=== PATIENT | female | born 2000 ===

== ENCOUNTER 2023-03-22 05:04 | Emergency (ER) | payer OTHER ==
--- OUTSIDE RECORDS SUMMARY | 2023-03-22 05:09 | XMS REPORT | Continuity of Care Document ---
:2000 Author Organization [facility] t Address [address] [place] [address] [address] [place] [address] Care Team Providers Name Role Phone ANY MCKEON Primary Care Physician Unavailable RADHA WELDON Attending Clinician Unavailable ROBERT DELGADO Attending Clinician Unavailable GARCIA ALEJANDRO Attending Clinician Unavailable Garcia Alejandro MD Attending Clinician [phone] Randy Villarreal MD Attending Clinician Fernando Pfeiffer DO Attending Clinician Ralph Mathur MD Attending Clinician Doctor Unassigned, [place] Attending Clinician Unavailable Robert Price Attending Clinician [phone] Radha Arevalo Attending Clinician MAYA GUTIERREZ Attending Clinician Unavailable Risk, Flh-Ziguq-Na/High Attending Clinician Unavailable Maya Barillas Attending Clinician BURAK CHANDLER Attending Clinician Unavailable Burak Chandler MD Attending Clinician Ultrasound, Ang-Mfericka Attending Clinician Unavailable Tereso Walker DO Attending Clinician ANY MCKEON Attending Clinician Unavailable Provider, Ang-Rmchp Temp Attending Clinician Unavailable Simin Vyas Attending Clinician [phone] SIMIN BLAND Attending Clinician Unavailable Emily Wood MD Attending Clinician EMILY WOOD Attending Clinician Unavailable Marlen Lynn MD Attending Clinician Any Kaba Attending Clinician Bar Huertas DO Attending Clinician BURAK CHANDLER Admitting Clinician Unavailable GARCIA ALEJANDRO Admitting Clinician Unavailable Ryne Mcginnis MD, [place] Admitting Clinician Burak Chandler MD Admitting Clinician Payers Payer Name Policy Type Policy Number Effective Date Expiration Date [facility] [id number] 2021 [facility] MEDICAID 00:00:00 [place]ICAID OF [place] [id number] 2021 00:00:00 MEDICAID PENDING PENDING 2021 00:00:00 [id number]-[id number] 2019 00:00:00 Problems Condition Condition Condition Status Onset Resolution Last Treating Co mments Source Name Details Category Date Date Treatment Clinician Date Disease Active Univers (spontaneo (spontaneo 3-26 [place] y [place] vaginal [place] [facility] Gestationa Gestationa Disease Active U nivers l l 3-26 [place] of hypertens[place]ens[place] [facility] Single Single Disease Active Univers live live 3-26 ity of 00:00: [place] 00 [facility] Decreased Decreased Disease Active Uni vers 3-25 ity of movement movement 00:00: [place] affecting affecting 00 [facility] management management Br anch of of in third in third trimester, trimester, fetus 1 fetus 1 Nausea and Nausea and Disease Active U nivers vomiting vomiting 3-25 ity of during during 00:00: [place] 00 [facility] Branch Supervisio Supervisio Disease Active U nivers n of n of 3-16 ity of high-risk high-[place] 00:[place] [facility] Multiparit Multiparit Disease Active U nivers y y 3-16 ity of 00:00: [place] [facility] Gastroesop Gastroesop Disease Active U nivers hageal hageal 3-10 ity of reflux [place] reflux [place] [facility] Morbid Morbid Disease Active Univers obesity obesity 1-28 ity of with body with body 00:[place] mass index mass index 00 Me dical of of Branch 40.0-49.9 40.0-49.9 Nexplanon Nexplanon Disease Active Uni vers insertion insertion 4-17 ity of 00:00: [place] [facility] Obesity Obesity Disease Active Univers (BMI (BMI 2-08 ity of 30-39.9) 30-39.9) 00:00: [facility] Obesity in Obesity in Disease Active U nivers 2-08 ity of 00:00: [place] [facility] Maternal Maternal Disease Active Overview: Un ann varicella, varicella, 8-08 Formattin ity of non-immune non-immune 00:00: g of this [place] 00 note Medical might be Branch different from the original. Address pp Allergies, Adverse Reactions, Alerts Allergy Allergy Status Severity Reaction(s) Onset Inactive Treating Comm ents Source Name Type Date Date Clinician NO KNOWN Drug Active Univers ALLERGIE Class ity of S [facility] Social History Social Habit Start Date Stop Date Quantity Comments Source ASSERTION 2021-04-26 University of 00:00:00 [facility] Exposure to Not sure [facility] SARS-CoV-2 [facility] (event) Branch Alcohol intake 2022-01-04 2022-01-04 Current University of 00:00:00 00:00:00 non-drinker of [facility] alcohol [place] (finding) Tobacco use and 2018-05-19 2018-05-19 Never used Universit y of exposure 00:00:00 00:00:00 [facility] Sex Assigned At [birth year] Universit y of 00:00:00 00:00:00 [facility] Smoking Status Start Date Stop Date Source Unknown if ever smoked Universit y of [place] [facility] Never smoker [facility] Medications Ordered Filled Start Stop Current Ordering Indication Dosage Frequency Signature Comments Components Source Medication Medication Date Date Medication? Clinician (SIG) Name Name Yes [id number] 1{tbl} Take 1 Univers vitamin 3-27 tablet by ity of w/FA tablet 00:00: mouth [place] 00 daily. Medical Branch docusate Yes [id number] 240mg Take 1 U nivers calcium 240 3-27 capsule by it y of mg capsule 00:00: mouth [place] 00 daily as Medical needed for Branch Constipati on. ferrous Yes [id number] 325mg Take 1 Un nan sulfate 325 3-27 tablet by ity of mg (65 mg 00:00: mouth 2 [place] iron) 00 (two) Medical tablet times Branch daily. ibuprofen Yes [id number] 600mg Take 1 Univers 600 mg 3-27 tablet by ity of tablet 00:00: mouth [place] 00 every 6 Medical (six) Branch hours as needed (Pain). Take with food or milk. Yes [id number] 1{tbl} Take 1 Univers vitamin 3-27 tablet by ity of w/FA tablet 00:00: mouth [place] 00 daily. Medical Branch docusate Yes [id number] 240mg Take 1 U nivers calcium 240 3-27 capsule by it y of mg capsule 00:00: mouth once [place] 00 daily as Medical needed for Branch Constipati on. ferrous Yes [id number] 325mg Take 1 Un ann sulfate 325 3-27 tablet by ity of mg (65 mg 00:00: mouth 2 [place] iron) 00 (two) Medical tablet times Branch daily. ibuprofen Yes [id number] 600mg Take 1 Univers 600 mg 3-27 tablet by ity of tablet 00:00: mouth [place] 00 every 6 Medical (six) Branch hours as needed (Pain). Take with food or milk. Yes [id number] 1{tbl} Take 1 Univers vitamin 3-27 tablet by ity of w/FA tablet 00:00: mouth [place] 00 daily. Medical Branch docusate Yes [id number] 240mg Take 1 U nivers calcium 240 3-27 capsule by it y of mg capsule 00:00: mouth once [place] 00 daily as Medical needed for Branch Constipati on. ferrous Yes [id number] 325mg Take 1 Un ann sulfate 325 3-27 tablet by ity of mg (65 mg 00:00: mouth 2 [place] iron) 00 (two) Medical tablet times Branch daily. ibuprofen Yes [id number] 600mg Take 1 Univers 600 mg 3-27 tablet by ity of tablet 00:00: mouth [place] 00 every 6 Medical (six) Branch hours as needed (Pain). Take with food or milk. simethicone Yes 125mg 125 mg, Un ann (MYLICON) 3-26 Oral, ity of chewable 14:00: PC+HS, [place] tablet 125 00 First dose Med ical mg on Sat Branch 01/05/22 at 0900, Until Discontinu ed, Routine rho(D) Yes 300ug 300 mcg, Univer s immune 01-05 Intramuscu ity of globulin 08:57: lar, ONCE, Nitesh as (RHOGAM) 15 For 1 Medical syringe 300 dose, Branch mcg Conditiona l, Routine HYDROcodone Yes 1{tbl} 1 tablet, Univers -acetaminop 01-05 Oral, ity of hen (NORCO 08:57: Q6HPRN, [place] 5) 5-325 mg 14 Starting Medi edison tablet 1 on Sat Branch tablet 01/05/22 at 0357, Until Discontinu ed, Routine, Pain (scale 7-10) ibuprofen Yes 600mg 600 mg, Univ ers (IBU) 3- Oral, ity of tablet 600 08:57: Q6HPRN, [place] mg 14 Starting Medical on Sat Branch 01/05/22 at 0357, Until Discontinu ed, Routine, Pain (scale 4-6) ondansetron Yes 4mg 4 mg, Slow Univers (ZOFRAN 01-05 IV Push, ity of (PF)) 08:57: Q8HPRN, [place] injection 4 14 Starting Medi edison mg on Sat Branch 01/05/22 at 0357, Until Discontinu ed, Routine, Nausea and Vomiting (N/V) magnesium Yes 30mL 30 mL, Univer s hydroxide 01-05 Oral, ity of (MILK OF 08:57: QDAILYPRN, [place] as MAGNESIA) 14 Starting Medica l 400 mg/5 mL on Sat Branch suspension 01/05/22 at 30 mL 0357, Until Discontinu ed, Routine, Constipati on acetaminoph Yes 650mg 650 mg, Un ann en 01-05 Oral, ity of (TYLENOL) 08:57: Q6HPRN, [place] tablet 650 13 Starting Medic al mg on Sat Branch 01/05/22 at 0357, Until Discontinu ed, Routine, Pain (scale 1-3) diphenhydrA Yes 25mg 25 mg, Univ ers MINE 01-05 Oral, ity of (BENADRYL) 08:57: Q6HPRN, [place] tablet 25 13 Starting Medica l mg on Sat Branch 01/05/22 at 0357, Until Discontinu ed, Routine, Sleep, Itching docusate Yes 240mg 240 mg, Unive rs calcium 01-05 Oral, ity of (SURFAK) 08:57: QDAILYPRN, [place] as capsule 240 13 Starting Medi eidson mg on Sat Branch 01/05/22 at 0357, Until Discontinu ed, Routine, Constipati on benzocaine- Yes Topical, Un ann menthol 01-05 PRN, ity of (DERMOPLAST 08:57: [place] ) 20-0.5 % 13 on [facility] Medical topical 01/05/22 at Branch spray 0357, Until Discontinu ed, Routine, Perineum discomfort lactated 2021- No 500mL at 999 Unive rs ringers IV 01-05 mL/hr, 500 it y of infusion 05:15: 04:36 mL, IV [place] 500 mL 00 :00 Infusion, Medical ONCE, 1 Branch dose, On 01/05/22 at 0015, Routine fentaNYL-ro 2021- No Epidural, Univers pivacaine 2 01-05 CONTINUOUS i ty of mcg/mL-0.1 04:49: 10:28 PRN, [place] % (PF) in 00 :41 Starting Medica l NS 200 mL on Fri Branch epidural 01/04/22 at infusion 2349, RTU Until 01/05/22 at 0528, Routine, Intra-op lidocaine-e 2021- No Epidural, Univers pinephrine 01-05 ONCE INTRA it y of (XYLOCAINE 04:46: 10:28 PROCEDURE, [place] W/EPINEPHRI 00 :41 Starting [facility] NE) 1.5 on Fri Branch %-1:200,000 01/04/22 at injection 2346, Until 01/05/22 at 0528, Routine, Intra-op sodium 2021- No 30mL 30 mL, Univers citrate-cit 01-05 Oral, ity of vicky acid 04:14: 04:35 PRE-PROCED [place] (BICITRA) 09 :00 URE ONCE, Medic al 500-334 1 dose, Branch mg/5 mL Starting solution 30 on Fri mL 01/04/22 at 2314, Until 01/04/22 at 2335, Routine, Surgery/Pr ocedure nalbuphine 2021- No 10mg 10 mg, Univ ers (NUBAIN) 01-05 Intravenou ity of injection 01:30: 00:39 s, ONCE, 1 [place] 10 mg 00 :00 dose, On Medical Fri Branch 01/04/22 at 2030, Routine proMETHazin 2021- No 12.5mg 12.5 mg, Univers e 01-05 IV ity of (PHENERGAN) 01:30: 01:14 Piggyback, [place] 12.5 mg in 00 :00 at 200 Medical NS 50 mL IV mL/hr Branch piggyback Administer (CNR) over 15 Minutes, ONCE, 1 dose, On 01/04/22 at 2030, Routine magnesium 2021- No 1g 1 g, IV Univ ers sulfate in 01-04 Piggyback, it y of D5W 1 22:00: 22:55 ONCE, 1 [place] gram/100 mL 00 :00 dose, On [facility] RTU IV Fri Branch Piggyback 1 01/04/22 at g 1700, Administer over 60 Minutes, 100 mL proMETHazin 2021- No 25mg 25 mg, IV Univers e 01-04 Piggyback, ity of (PHENERGAN) 21:15: 21:37 at 200 [place] as 25 mg in NS 00 :00 mL/hr Medical 50 mL IV Administer Branc h piggyback over 15 (CNR) Minutes, ONCE, 1 dose, On Fri01/04/22 at 1615, Routine butorphanol 2021- No 1mg 1 mg, IV U nivers (STADOL) 01-04 03-25 Push, ity of injection 1 21:15: 20:33 ONCE, 1 [place] mg 00 :00 dose, On Medical Fri Branch 01/04/22 at 1615, Routine oxytocin 2021- No 1mU/min at 1-40 Un ann (PITOCIN) 01-04 03-26 mL/hr, IV ity of 30 units in 17:22: 08:57 Infusion, [place] NS 500 mL 18 :15 TITRATE, Medica l IV infusion Starting Bran ch on Fri01/04/22 at 1222, Until 01/05/22 at 0357, KOKI D5W-LR IV 2021- No 1000mL at 125 Uni vers infusion 01-04 03-26 mL/hr, IV ity o f 1,000 mL 16:30: 08:57 Infusion, [place] as 00 :15 CONTINUOUS Medical , Starting Branch on Fri01/04/22 at 1130, Until 01/05/22 at 0357, Routine No known No Univers medications 3-16 ity of 13:49: [place] 40 Medical Branch Yes [id number] 1{packe Take 1 Univers vit 8-16 t} Packet by ity of 33-iron-fol 00:00: mouth [place] ic-dha 00 daily. Medical (SELECT-OB Branch + DHA) 29 mg iron-1 mg -250 mg combo pack Yes [id number] 1{packe Take 1 Univers vit 8-16 t} Packet by ity of 33-iron-fol 00:00: mouth [place] ic-dha 00 daily. Medical (SELECT-OB Branch + DHA) 29 mg iron-1 mg -250 mg combo pack Yes [id number] 1{packe Take 1 Univers vit 8-16 t} Packet by ity of 33-iron-fol 00:00: mouth [place] ic-dha 00 daily. Medical (SELECT-OB Branch + DHA) 29 mg iron-1 mg -250 mg combo pack 2020- Yes [id number] 1{packe Take 1 Univers vit 8-16 t} Packet by ity of 33-iron-fol 00:00: mouth [place] ic-dha 00 daily. Medical (SELECT-OB Branch + DHA) 29 mg iron-1 mg -250 mg combo pack 2021- No [id number] 1{packe Take 1 Univers vit 8-16 03-27 t} Packet by ity of 33-iron-fol 00:00: 00:00 [place] ic-dha 00 :00 daily. Medical (SELECT-OB Branch + DHA) 29 mg iron-1 mg -250 mg combo pack 2021- No [id number] 1{packe Take 1 Univers vit 8-16 03-27 t} Packet by ity of 33-iron-fol 00:00: 00:00 [place] ic-dha 00 :00 daily. Medical (SELECT-OB Branch + DHA) 29 mg iron-1 mg -250 mg combo pack Immunizations Ordered Filled Immunization Date Status Comments [facility] e Immunization Name Name Varicella 2022-01-05 Completed University of (varivax)(chicken 00:00:00 [place] M edical pox) Branch TDAP 2021-10-31 Completed University of 00:00:00 [facility] TDAP 2021-10-31 Completed University of 00:00:00 [facility] TDAP 2021-10-31 Completed University of 00:00:00 [facility] TDAP 2021-10-31 Completed University of 00:00:00 [facility] TDAP 2021-10-31 Completed University of 00:00:00 [facility] TDAP 2021-10-31 Completed University of 00:00:00 [facility] TDAP 2021-10-31 Completed University of 00:00:00 [facility] Varicella 2019-01-27 Completed University of (varivax)(chicken 00:00:00 [place] M edical pox) Branch HPV9 2019-01-27 Completed University of 00:00:00 [facility] Varicella 2019-01-27 Completed University of (varivax)(chicken 00:00:00 [place] M edical pox) Branch HPV9 2019-01-27 Completed University of 00:00:00 [facility] Varicella 2019-01-27 Completed University of (varivax)(chicken 00:00:00 [place] M edical pox) Branch HPV9 2019-01-27 Completed University of 00:00:00 [facility] Varicella 2019-01-27 Completed University of (varivax)(chicken 00:00:00 [place] M edical pox) Branch HPV9 2019-01-27 Completed University of 00:00:00 [facility] Varicella 2019-01-27 Completed University of (varivax)(chicken 00:00:00 [place] M edical pox) Branch HPV9 2019-01-27 Completed University of 00:00:00 [facility] Varicella 2019-01-27 Completed University of (varivax)(chicken 00:00:00 [place] M edical pox) Branch HPV9 2019-01-27 Completed University of 00:00:00 [facility] Varicella 2019-01-27 Completed University of (varivax)(chicken 00:00:00 [place] M edical pox) Branch HPV9 2019-01-27 Completed University of 00:00:00 [facility] Varicella 2018-11-22 Completed University of (varivax)(chicken 00:00:00 [place] M edical pox) Branch Varicella 2018-11-22 Completed University of (varivax)(chicken 00:00:00 [place] M edical pox) Branch Varicella 2018-11-22 Completed University of (varivax)(chicken 00:00:00 [place] M edical pox) Branch Varicella 2018-11-22 Completed University of (varivax)(chicken 00:00:00 [place] M edical pox) Branch Varicella 2018-11-22 Completed University of (varivax)(chicken 00:00:00 [place] M edical pox) Branch Varicella 2018-11-22 Completed University of (varivax)(chicken 00:00:00 [place] M edical pox) Branch Varicella 2018-11-22 Completed University of (varivax)(chicken 00:00:00 [place] M edical pox) Branch TDAP 2018-10-14 Completed University of 00:00:00 [facility] TDAP 2018-10-14 Completed University of 00:00:00 [facility] TDAP 2018-10-14 Completed University of 00:00:00 [facility] TDAP 2018-10-14 Completed University of 00:00:00 [facility] TDAP 2018-10-14 Completed University of 00:00:00 [place] [facility] TDAP 2018-10-14 Completed University of 00:00:00 [facility] Branch TDAP 2018-10-14 Completed University of 00:00:00 [facility] Influenza Virus 2018-07-22 Completed Universit y of Vaccine Quad IM 3+ 00:00:00 [facility] Influenza Virus 2018-07-22 Completed Universit y of Vaccine Quad IM 3+ 00:00:00 [facility] Branch Influenza Virus 2018-07-22 Completed Universit y of Vaccine Quad IM 3+ 00:00:00 [facility] Influenza Virus 2018-07-22 Completed Universit y of Vaccine Quad IM 3+ 00:00:00 [facility] Influenza Virus 2018-07-22 Completed Universit y of Vaccine Quad IM 3+ 00:00:00 [facility] Influenza Virus 2018-07-22 Completed Universit y of Vaccine Quad IM 3+ 00:00:00 [facility] Influenza Virus 2018-07-22 Completed Universit y of Vaccine Quad IM 3+ 00:00:00 [facility] Vital Signs Vital Name Observation Time Observation Value Comments Source Systolic blood 2022-01-06 12:48:00 127 mm[Hg] Univer sity of pressure [facility] Diastolic blood 2022-01-06 12:48:00 85 mm[Hg] Unive rsity of pressure [facility] Heart rate 2022-01-06 12:48:00 73 /min Universi ty [facility] Body temperature 2022-01-06 12:48:00 36.5 Kyung [facility] 2022-01-06 12:48:00 18 /min [facility] Oxygen saturation in 2022-01-06 12:48:00 99 /min [facility] Arterial blood by [facility] Pulse oximetry Branch Systolic blood 2022-01-03 21:07:00 131 mm[Hg] Univer sity of pressure [facility] Diastolic blood 2022-01-03 21:07:00 90 mm[Hg] Unive rsity of pressure [facility] Heart rate 2022-01-03 21:07:00 87 /min Universi ty of [facility] Body temperature 2022-01-03 21:07:00 37.44 Kyung [facility] Respiratory rate 2022-01-03 21:07:00 20 /min [facility] Body height 2022-01-03 21:07:00 162.6 cm Universi [facility] Body weight 2022-01-03 21:07:00 112.492 [facility] 2022-01-03 21:07:00 42.57 kg/m2 [facility] Systolic blood 2021-12-26 18:20:00 132 mm[Hg] Univer sity of pressure [facility] Diastolic blood 2021-12-26 18:20:00 79 mm[Hg] [facility] Heart rate 2021-12-26 18:20:00 76 /min [facility] Body temperature 2021-12-26 18:20:00 36.06 Kyung [facility] Respiratory rate 2021-12-26 18:20:00 18 /min [facility] Body height 2021-12-26 18:20:00 162.6 cm [facility] Body weight 2021-12-26 18:20:00 109.362 kg [facility] BMI 2021-12-26 18:20:00 41.38 kg/m2 [facility] Procedures Procedure Date / Time Performing Clinician Source Performed CBC WITH DIFF 2022-01-06 06:02:00 Scarlett Cameron [facility] VENOUS CORD GAS 2022-01-05 06:04:00 [facility] CENTRAL NEURAXIAL BLOCK 2022-01-05 05:00:57 Jag Calvin [facility] HB ABO GROUPING 2022-01-04 19:57:00 [facility] RHO (D) IMMUNE GLOBULIN 2022-01-04 19:57:00 Scarlett Cameron [facility] HEPATITIS B SURFACE 2022-01-04 19:28:00 [facility] ANTIGEN [facility] GALV ONLY - SYPHILIS 2022-01-04 19:28:00 [facility] IGG/IGM Medical Branch CBC WITHOUT DIFF 2022-01-04 19:27:00 [facility]-04 19:26[facility]00 [facility] PROTEIN CREAT RATIO URINE 2022-01-04 19:26:00 [facility] LACTATE DEHYDROGENASE 2022-01-04 19:25:00 [facility] 2022-01-04 19:25:00 [facility] AMYLASE 2022-01-04 19:25:00 [facility] LIPASE 2022-01-04 [facility] 2022-01-04 19:25:00 [facility] COMP. METABOLIC PANEL 2022-01-04 19:25[id number] Branch COVID-19 (ID NOW RAPID 2022-01-04 15:07:00 Ryne Mcginnis [facility] TESTING) [facility] LAB ONLY COVID 2022-01-04 15:07:00 Ryne Mcginnis, [facility] INTERPRETATION [facility] HOSPITAL ADMISSION 2022-01-04 05:01:00 Doctor Maxine [facility] [place] [facility] [place] POCT URINALYSIS 2022-01-03 00:00:00 Radha Weldon [facility] CONSENT/REFUSAL FOR 2021-11-09 06:01:00 Doctor Maxine [facility] DIAGNOSIS AND TREATMENT [place] [facility] [place] MEDICATION CORRESPONDENCE Doctor Maxine, [facility] [place] [facility] [place] Encounters Start End Encounter Admission Attending Care Care Encounter Source Date/Time Date/Time Type Type Clinicians Facility Department ID 2021-11-09 Outpatient P [facility] NATALI [id number] Univers 23:01:10 ity [facility] 2022-01-28 2022-01-28 Outpatient R FATEMEH [facility] [id number] Univers 13:00:00 13:00:00 RADHA ity o f [facility] 2022-01-08 2022-01-08 Outpatient R NENITA, [facility] [id number] Univers 14:00:00 14:00:00 ROBERT ity o f [facility] 2022-01-04 2022-01-06 Inpatient P RYNE [facility] NATALI [id number] Univers 09:28:00 12:30:00 KOANABELI it y of GARCIA Hernandes [facility] 2022-01-04 2022-01-06 [facility] Ryne PRADO [id number] Univers 09:28:00 12:30:00 Encounter Peewee HOPKINS [id number] ity of Garcia hernandes [facility] 4.2.7.2.686 Nitesh as [id number] [facility] 134 Branch 2022-01-05 2022-01-05 Anesthesia JOHAN Villarreal [id number] Univers 20:02:34 20:02:34 Event Randy KELLIE [id number] it y of [facility] 4.2.7.2.686 Nitesh as [id number] [facility] 132 Branch 2022-01-04 2022-01-05 Anesthesia Fernando Pfeiffer [id number] Univers 23:38:00 02:05:00 Event Ralph Mathur [id number] ity of [facility] 4.2.7.2.686 Nitesh as [id number] [facility] 132 Branch 2022-01-04 2022-01-04 Orders Doctor PRADO [id number] Univers 00:00:00 00:00:00 Only Unassigned, KELLIE [id number] ity of [place] [facility] 4.2.7.2.686 Nitesh as [id number] [facility] 009 Branch 2022-01-03 2022-01-03 Outpatient R NENITA, [facility] [id number] Univers 15:45:00 16:31:11 ROBERT ity o f [facility] 2022-01-03 2022-01-03 Routine Akinsipe, [facility] [id number] Univers 15:45:00 16:31:11 Robert C [employer] [id number] ity of Visit [facility] 4.2.7.2.686 Nitesh as MATERNAL [id number] [facility] & CHILD [address] [place] [address] 2022-01-02 2022-01-02 Outpatient R AKINBRUNILDAPE, [facility] [id number] Univers 14:00:00 14:00:00 ROBERT shepherd o steve [facility] 2021-12-26 2021-12-26 Outpatient R AKINSIPE, [facility] [id number] Univers 12:45:00 13:34:30 ROBERT shepherd o steve [facility] 2021-12-26 2021-12-26 [facility]ine [facility], [facility] [id number] Univers 12:45:00 13:34:30 Robert C [employer] [id number] ity of Visit REGIONAL 4.2.7.2.686 Nitesh as MATERNAL [id number] [facility] & [address] 2021-12-26 2021-12-26 Outpatient R AKINSIPE, [facility] [id number] Univers 12:45:00 12:45:00 ROBERT otero [facility] 2021-12-21 2021-12-21 Orders Doctor JOHAN 1.2.840.114 [id number] Univers 00:00:00 00:00:00 Only Unassigned, KELLIE 350.1.13.10 ity of [place] [facility] 4.2.7.2.686 Nitesh as [phone] [address] 2021-12-21 2021-12-21 Telephone Akinpe, [facility] 1.2.840.114 [id number] Univers 00:00:00 00:00:00 Robert C [employer] 350.1.13.10 ity of [facility] 4.2.7.2.686 Nitesh as MATERNAL [phone] [facility] & CHILD [address] [place] [address] 2021-12-20 2021-12-20 Outpatient R AKINSIPE, [facility] [id number] Univers 11:00:00 11:37:52 ROBERT shepherd o steve [facility] 2021-12-20 2021-12-20 [facility] 1.2.997.200 [id number] Univers 11:00:00 11:37:52 Robert C [employer] 350.1.13.10 ity of Visit REGIONAL 4.2.7.2.686 Nitesh as MATERNAL [phone] [facility] & CHILD [address] [place] [address] 2021-12-20 2021-12-20 Outpatient R MERCEDESDARY, [facility] [id number] Univers 11:00:00 11:37:52 ROBERT shepherd o [facility] 2021-12-12 2021-12-12 Outpatient R FATEMEH [facility] [id number] Univers 07:45:00 07:45:00 RADHA shepherd o [facility] 2021-11-28 2021-11-28 Outpatient Kriss WELDON [facility] [id number] Univers 15:45:00 16:05:59 HORTENSIANDJc shepherd o [facility] 2021-11-28 2021-11-28 [facility] 1.2.840.114 [id number] Univers 15:45:00 16:05:59 Itaa R [employer] 350.1.13.10 ity of Visit REGIONAL 4.2.7.2.686 Nitesh as MATERNAL [phone] [facility] & [address] 2021-11-15 2021-11-15 Outpatient R BRENDA [facility] [id number] Univers 09:30:00 10:02:29 MAYA shepherd [facility] 2021-11-15 2021-11-15 Routine Risk, Kfn-Ybnkh-Mw/High [facility] 1. 2.840.114 [id number] Univers 09:30:00 10:02:29 Maya Gutierrez L [employer] 350.1.13.10 ity of Visit REGIONAL 4.2.7.2.686 Nitesh as MATERNAL [phone] Med ical & CHILD [address] [place] [address] 2021-11-14 2021-11-14 Outpatient R WELDON [facility] [id number] Univers 10:15:00 10:15:00 ROSZACHNDA ity o f [facility] 2021-11-12 2021-11-12 Outpatient R FATEMEH [facility] [id number] Univers 08:15:00 08:15:00 ROSZACHNDA ity o f [facility] 2021-11-09 2021-11-09 Outpatient P BURAK CHANDLER [facility] NATALI [id number] Univers 19:36:00 22:59:00 ity of [facility] 2021-11-09 2021-11-09 Hospital Burak Chandler 1.2.840.114 [id number] Univers 19:36:00 22:59:00 Encounter KELLIE 350.1.13.10 ity [facility] 4.2.7.2.686 Nitesh as [phone] [address] 2021-10-31 2021-10-31 Outpatient R WELDON [facility] [id number] Univers 09:00:00 09:49:17 ROSZACHNDA ity o [facility] 2021-10-31 2021-10-31 [facility] 1.2.840.114 [id number] Univers 09:00:00 09:49:17 Roshunda R [employer] 350.1.13.10 ity of Visit [facility] 4.2.7.2.686 Nitesh as MATERNAL [phone] [facility] ical & CHILD [address] [place] [address] 2021-10-31 2021-10-31 Outpatient R WELDON [facility] [id number] Univers 09:00:00 09:00:00 ROSZACHNDA ity o [facility] 2021-10-09 2021-10-09 Outpatient R FATEMEH [facility] [id number] Univers 09:45:00 10:43:03 ROSHUNDA ity o [facility] 2021-10-09 2021-10-09 Routine Fatemeh [facility] 1.2.840.114 [id number] Univers 09:45:00 10:43:03 Roshunda R [employer] 350.1.13.10 ity of Visit REGIONAL 4.2.7.2.686 Nitesh as MATERNAL [phone] [facility] ical & CHILD [address] [facility] 2021-10-01 2021-10-01 [facility] 1.2 .840.114 [id number] Univers 11:15:00 12:00:00 Visit Tereso Walker [employer] 350.1.13.10 ity of REGIONAL 4.2.7.2.686 Nitesh as MATERNAL [phone] [facility] ical & CHILD [address] [facility] 2021-10-01 2021-10-01 Outpatient P KEEGAN [facility] [id number] Univers 11:15:00 11:15:00 TERESO ity [facility] 2021-09-17 2021-09-17 Outpatient R MIKE [facility] [id number] Univers 12:45:00 12:45:00 ANY [facility] 2021-09-11 2021-09-11 Routine Provider, Junior [facility] 1 .2.840.114 [id number] Univers 09:01:44 09:44:43 Simin Bland [employer] 350.1.13 .10 ity of Visit REGIONAL 4.2.7.2.686 Nitesh as MATERNAL [phone] [facility] & CHILD [address] [place] [address] 2021-09-11 2021-09-11 Outpatient R DELORES [facility] [id number] Univers 09:00:00 09:44:43 SIMIN shepherd o f [facility] 2021-08-29 2021-08-29 Outpatient R [facility] [id number] Univers 10:45:00 10:45:00 ity [facility] 2021-08-27 2021-08-27 Hog Ringer Ultrasound, [facility] 1.2 .840.114 [id number] Univers 09:13:24 10:28:24 Visit Emily Wood [employer] 350.1. 13.10 ity of REGIONAL 4.2.7.2.686 Nitesh as MATERNAL [phone] Med ical & CHILD [address] [place] [facility] 2021-08-27 2021-08-27 Outpatient P ISRAEL [facility] [id number] Univers 09:00:00 09:00:00 CHASEY ity [facility] 2021-08-01 2021-08-01 Routine Provider, [facility] 1 .2.840.114 [id number] Univers 13:00:39 13:43:52 Simin Bland O [employer] 350.1.13 .10 ity of Visit REGIONAL 4.2.7.2.686 Nitesh as MATERNAL [phone] Med ical & CHILD [address] [facility] 2021-08-01 2021-08-01 Outpatient R [facility] [id number] Univers 13:15:00 13:15:00 ity of [facility] 2021-07-18 2021-07-18 Routine Provider, Jnuior [facility] 1 .2.840.114 [id number] Univers 08:49:08 09:26:19 Simin Bland O [employer] 350.1.13 .10 ity of Visit REGIONAL 4.2.7.2.686 Nitesh as MATERNAL [phone] [facility] & CHILD [address] [place] [address] 2021-07-18 2021-07-18 Outpatient R [facility] [id number] Univers 09:00:00 09:00:00 ity [facility] 2021-06-25 2021-06-25 Hog [facility] Ultrasound[facility] 1.2 .840.114 [id number] Univers 08:54:16 09:12:44 Visit Marlen Lynn [employer] 350.1.13.10 ity of REGIONAL 4.2.7.2.686 Nitesh as MATERNAL [phone] [facility] & CHILD [address] [place] [address] 2021-06-25 2021-06-25 Outpatient R [facility] [id number] Univers 09:00:00 09:00:00 ity [facility] 2021-06-25 2021-06-25 Abstract Fatemeh [facility] 1.2.840.114 [id number] Univers 00:00:00 00:00:00 Roshunda R [employer] 350.1.13.10 ity of REGIONAL 4.2.7.2.686 Nitesh as MATERNAL [phone] [facility] & CHILD [address] [place] [address] 2021-06-19 2021-06-19 [facility] 1.2.840.114 [id number] Univers 08:15:25 08:30:25 Roshunda R [employer] 350.1.13.10 ity of Visit REGIONAL 4.2.7.2.686 Nitesh as MATERNAL [phone] [facility] & CHILD [address] [place] [address] 2021-06-19 2021-06-19 [facility] [id number] Univers 08:15:00 08:15:00 ROSHUNDA ity o f [facility] 2021-05-28 2021-05-28 [facility] 1.2.840.114 [id number] Univers 00:00:00 00:00:00 Any N [employer] 350.1.13.10 it y of REGIONAL 4.2.7.2.686 Nitesh as MATERNAL [phone] [address] 2021-05-22 2021-05-22 Edmundo [facility] 1.2.840.114 [id number] Univers 08:53:08 10:01:05 Roshunda R [employer] 350.1.13.10 ity of Visit REGIONAL 4.2.7.2.686 Nitesh as MATERNAL [id number] [facility] & CHILD [address] [place] [address] 2021-05-22 2021-05-22 Outpatient [facility] [id number] Univers 08:30:00 08:30:00 ROSHUNDA ity o f [facility] 2021-05-22 2021-05-22 Outpatient Kriss [facility] [id number] Univers 08:30:00 08:30:00 ROSHUNDA ity o f [facility] 2021-05-22 2021-05-22 Orders Doctor PRADO 1.2.840.114 [id number] Univers 00:00:00 00:00:00 Only Unassigned, KELLIE 350.1.13.10 ity of [place] [facility] 4.2.7.2.686 Nitesh as [phone] [facility] [address] 2021-01-02 2021-01-02 Patient Aleksandar [facility] 1.2.840.114 [id number] Univers 00:00:00 00:00:00 Outreach Bar PRIMARY 350.1.13.10 i ty of [facility] 4.2.7.2.686 [place] RUBIO [phone] N[place] dical [address] 2020-10-31 2020-10-31 Outpatient R NENITA, [facility] [id number] Univers 08:45:00 08:45:00 ROBERT otero [facility] 2020-03-22 2020-03-22 [facility] [id number] Univers 09:45:00 09:45:00 ROBERT otero [facility] 2020-01-12 2020-01-12 Telemedici [facility] 1.2.840.114 [id number] Univers 13:06:11 14:52:20 ne Visit Robert Reddy [employer] 350.1.13.10 ity of [facility] 4.2.7.2.686 Nitesh as MATERNAL [id number] Med ical & CHILD [address] [place] [address] 2020-01-12 2020-01-12 Out[facility] [id number] Univers 14:30:00 14:30:00 ROBERT wilson [facility] 2020-01-11 2020-01-11 Telephone [facility] 1.2.840.114 [id number] Univers 00:00:00 00:00:00 Any Potts [employer] 350.1.13.10 it y of [facility] 4.2.7.2.686 Nitesh as MATERNAL [phone] [facility] ical & CHILD [address] [place] [address] 2019-06-21 2019-06-21 Telephone [facility] 1.2.840.114 [id number] Univers 00:00:00 00:00:00 Robert C [employer] 350.1.13.10 ity of [facility] 4.2.7.2.686 Nitesh as MATERNAL [phone] Med ical & CHILD [address] [place] [address] Orders Doctor JOHAN 1.2.840.114 [id number] Univers 00:00:00 00:00:00 Only Unassigned, KELLIE 350.1.13.10 ity of [place] [facility] 4.2.7.2.686 Nitesh as [phone] [facility] [address] [place] Results Test Description Test Time Test Comments Results Result Comments Source CBC with Differential 2022-01-06 06:26:36 Test Item Value Reference Range Interpretation Comme nts WBC (test code = 6690-2) See_Comment H [A utomated message] The system which ge nerated this result transmit eileen reference range: 4.30 - 1 1.10 10*3/?L. The reference r daniel was not used to interpr et this result as normal/abnor mal. RBC (test code = 789-8) See_Comment L [Au tomated message] The system which ge nerated this result transmit eileen reference range: 3.93 - 5 .25 10*6/?L. The reference r daniel was not used to interpr et this result as normal/abnor mal. HGB (test code = 718-7) 10.4 g/dL 11.6-15.0 L HCT (test code = 4544-3) 31.6 % 35.7-45.2 L MCV (test code = 787-2) 86.3 fL 80.6-95.5 MCH (test code = 785-6) 28.4 pg 25.9-32.8 MCHC (test code = 786-4) 32.9 g/dL 31.6-35.1 RDW-SD (test code = 00925-3) 41.9 fL 39.0-49.9 RDW-CV (test code = 788-0) 13.5 % 12.0-15.5 PLT (test code = 777-3) See_Comment [Au tomated message] The system which ge nerated this result transmit eileen reference range: 166 - 35 8 10*3/?L. The reference range was not used to interpret th is result as normal/abnormal . MPV (test code = 16271-2) 11.4 fL 9.5-12.9 NRBC/100 WBC (test code = See_Comment [ Automated message] The 7178106295) system which ge nerated this result transmit eileen reference range: 0.0 - 10 .0 /100 WBCs. The reference r daniel was not used to interpr et this result as normal/abnor mal. NRBC x10^3 (test code = <0.01 See_Comment [Au tomated message] The 7302851039) system which Pervasip nerated this result transmit eileen reference range: 10*3/?L. The reference range was not u sed to interpret this result as normal/abnormal . GRAN MAT (NEUT) % (test code 60.0 % = 770-8) IMM GRAN % (test code = 1.60 % 8184782337) LYMPH % (test code = 736-9) 30.0 % MONO % (test code = 5905-5) 6.7 % EOS % (test code = 713-8) 1.2 % BASO % (test code = 706-2) 0.5 % GRAN MAT x10^3(ANC) (test 7.20 10*3/uL 1.88-7.09 H code = 2589424932) IMM GRAN x10^3 (test code = 0.19 10*3/uL 0.00-0.06 H 2243933805) LYMPH x10^3 (test code = 3.59 10*3/uL 1.32-3.29 H 731-0) MONO x10^3 (test code = 0.80 10*3/uL 0.33-0.92 742-7) EOS x10^3 (test code = 0.14 10*3/uL 0.03-0.39 711-2) BASO x10^3 (test code = 0.06 10*3/uL 0.01-0.07 704-7) Lab Interpretation (test Abnormal code = 38678-8) [facility] SYPHILIS [id number] 16:50:28 Test Item Value Reference Range Interpretation Comments Syphilis IgG/IgM (test Non-reactive Non-reactive code = 98316-6) GHASSAN (test code = GHASSAN) Non-reactive - No serologic evidence of T. pallidum infection. Cannot exclude incubating or early syphilis. Submit a second specimen in 2-4 weeks if syphilis is clinically suspected. Equivocal - Further testing to follow. Reactive - Further testing to follow. Lab Interpretation (test Normal code = 33639-1) [facility] Dallas[facility]HO (D) IMMUNE [id number] 09:02:15 Test Item Value Reference Range Interpretation Comments RHIG CANDIDATE? No- see comment Patient i s not a (test code = candidate for R hIg- 5055) Patient is Rh Positive.Perfor med at [facility] Laboratory Services - [facility] [address] [place] [address]Tdln Free: [phone] A No. [id number] [facility] DallasARTERIAL CORD [id number] 06:16:04 Test Item Value Reference Range Interpretation Comments BASE EXCESS, CORD mEq/L QUES (test code = 7109281749) AC PH, CORD (BEAKER) 7.18-7.38 (test code = 3002729094) PC02, CORD (test code See_Comment [Auto mated message] The = 4583699989) system which g enerated this result transmit eileen reference range : 32 - 66 mmHg. The refer ence range was not used to interpret this result as normal/abnormal . PO2, CORD (test code See_Comment [Autom ated message] The = 0232203732) system which g enerated this result transmit eileen reference range : 10 - 30 mmHg. The refer ence range was not used to interpret this result as normal/abnormal . BICARBONATE, CORD See_Comment [Automate d message] The (test code = system which ge nerated this 6270244366) result transmit eileen reference range : 17 - 27 mEq/L. The refe rence range was not used to interpret this result as normal/abnormal . [facility] DallasVENOUS CORD [id number] 06:15:49 Test Item Value Reference Range Interpretation Comments VENOUS BASE EXCESS, mEq/L CORD (test code = 0025249690) VENOUS PH, CORD (test 7.25-7.45 code = 7185136042) VENOUS PC02, CORD See_Comment [Automate d message] The (test code = system which ge nerated 7489249234) this result tra nsmitted reference range : 27 - 49 mmHg. The refer ence range was not used to interpret this result as normal/abnormal . VENOUS PO2, CORD (test See_Comment [Aut omated message] The code = 7728366904) system [facility] generated this result tra nsmitted reference range : 17 - 41 mmHg. The refer ence range was not used to interpret this result as normal/abnormal . VENOUS BICARBONATE, See_Comment [Automa eileen message] The CORD (test code = system whi ch generated 8104316530) this result tra nsmitted reference range : 12 - 29 mEq/L. The refe rence range was not used to interpret this result as normal/abnormal . [facility] DallasType and Screen - ONCE [id number] 22:26:47 Test Item Value Reference Range Interpretation Comments ABO & RH (test code O POSITIVE Performe d at [facility] = 20) Laboratory [facility] Blood Bank3 [address] [facility] [address]Owed Free: [phone] A No. [id number] IAT (test code = Negative Performed a t [facility] 1185) Laboratory [facility] Blood Bank3 [address] [facility] s [address]Vjdl Free: [phone] A No. [id number] [facility] DallasHepatitis B Surface [id number] 20:41:55 Test Item Value Reference Range Interpretation Comments HBsAg Semi-Quantitative (test code = Negative Negative 5195-3) [facility] DallasCOM. METABOLIC PANEL (63675)2022-01-04 20:12:51 Test Item Value Reference Range Interpretation Comments NA (test code = 133 mmol/L 135-145 L 6194458585) K (test code = 4.7 mmol/L 3.5-5.0 Slight 8032902232) hemolysis CL (test code = 109 mmol/L 98-108 H 3593777838) CO2 TOTAL (test code 19 mmol/L 23-31 L = 9527837055) AGAP (test code = 2-16 4582821236) BUN (test code = 2 mg/dL 7-23 L Slight 1960455123) hemolysis GLUCOSE (test code = 63 mg/dL 70-110 L 0050131398) CREATININE (test code 0.39 mg/dL 0.50-1.04 L = 9014450776) TOTAL BILI (test code 0.8 mg/dL 0.1-1.1 = 4444203968) CALCIUM (test code = 8.2 mg/dL 8.6-10.6 L 3939390965) T PROTEIN (test code 5.8 g/dL 6.3-8.2 L = 8354316207) ALBUMIN (test code = 3.2 g/dL 3.5-5.0 L 7001734046) ALK PHOS (test code = 166 U/L 34-122 H Slight 7045707709) hemolysis ALTv (test code = 10 U/L 5-35 1742-6) AST(SGOT) (test code 32 U/L 13-40 Slight = 7335265989) hemolysis eGFR (test code = mL/min/1.73m2 9377364316) GHASSAN (test code = GHASSAN) Association of Glomerular Filtration Rate (GFR) and Staging of Kidney Disease* + -----+ --------+ +| GFR (mL/min/1.73 m2) ?| With Kidney Damage ?| ?Without Kidney Damage+ +------- +---- --+| ?>90 ?| ?Stage one ?| ? Normal ?+ ------+ ---------+--------- +| ?60-89 ?| ?Stage two ?| ? Decreased GFR ? + -----+ --------+ +| ?30-59 ?| ?Stage three ?| ? Stage three ? + -----+ --------+ +| ?15-29 ?| ?Stage four ? | ? Stage four ?+ ------+ ---------+--------- +| ?<15 (or dialysis) ? ?| ?Stage five ? | ? Stage five ?+ ------+ ---------+--------- + *Each stage assumes the associated GFR level has been in effect for at least three months. ?Stages 1 to 5, with or without kidney disease, indicate chronic kidney disease. Notes: Determination of stages one and two (with eGFR >59mL/min/1.73 m2) requires estimation of kidney damage for at least three months as defined by structural or functional abnormalities of the kidney, manifested by either:Pathological abnormalities or Markers of kidney damage (including abnormalities in the composition of the blood or urine or abnormalities in imaging tests). Lab Interpretation Abnormal (test code = 93884-1) [facility] DallasURIC [id number] 20:12:51 Test Item Value Reference Range Interpretation Comments URIC ACID (test code = 7340531925) 2.9 mg/dL 2.9-6.0 Lab Interpretation (test code = Normal 97294-7) [facility] DallasLACTATE [id number] 20:12:51 Test Item Value Reference Range Interpretation Comments LDH (test code = 7935508115) 720 U/L 300-600 H Lab Interpretation (test code = Abnormal 82683-8) [facility] DallasMAGNESIUM2022-03-25 20:12:51 Test Item Value Reference Range Interpretation Comments MAGNESIUM (test code = 6966715441) 1.6 mg/dL 1.7-2.4 L Lab Interpretation (test code = Abnormal 32350-1) [facility] DallasAMYLASE2022-03-25 20:12:51 Test Item Value Reference Range Interpretation Comments VALERIO (test code = 9908604569) 48 U/L 35-110 Lab Interpretation (test code = Normal 88395-3) [facility] DallasLIPASE2022-03-25 20:12:51 Test Item Value Reference Range Interpretation Comments LIPASE (test code = 4298001609) 21 U/L 0-220 Lab Interpretation (test code = Normal 57014-1) [facility] DallasCBC WITHOUT [id number] 19:52:06 Test Item Value Reference Range Interpretation Comments WBC (test code = 6690-2) See_Comment H [A utomated message] The system [employer] generated this result transmit eileen reference range : 4.30 - 11.10 10*3/?L. The reference range was not used to interpret this result as normal/abnormal . RBC (test code = 789-8) See_Comment [Au tomated message] The system [employer] generated this result transmit eileen reference range : 3.93 - 5.25 10* 6/?L. The reference r daniel was not used to interpret this result as normal/abnormal . HGB (test code = 718-7) 12.7 g/dL 11.6-15.0 HCT (test code = 4544-3) 39.5 % 35.7-45.2 MCH (test code = 785-6) 27.6 pg 25.9-32.8 MCV (test code = 787-2) 85.9 fL 80.6-95.5 MCHC (test code = 786-4) 32.2 g/dL 31.6-35.1 PLT (test code = 777-3) See_Comment [Au tomated message] The system [employer] generated this result transmit eileen reference range : 166 - 358 10*3/?L. The reference range was not used to interpret this result as normal/abnormal . MPV (test code = 11.3 fL 9.5-12.9 27191-3) RDW-CV (test code = 13.6 % 12.0-15.5 788-0) RDW-SD (test code = 42.3 fL 39.0-49.9 83083-5) NRBC x10^3 (test code = <0.01 See_Comment [Au tomated message] 6836850736) The system [employer] generated this result transmit eileen reference range : 10*3/?L. The reference range was not used to interpret this result as normal/abnormal . NRBC/100 WBC (test code See_Comment [Au tomated message] = 7453408967) The system [employer] generated this result transmit eileen reference range : 0.0 - 10.0 /100 WBC s. The reference r daniel was not used to interpret this result as normal/abnormal . IPF % (test code = 3661436119) Lab Interpretation (test Abnormal code = 61903-6) [facility] URINALYSIS W SPECIFIC [id number] 21:09:00 Test Item Value Reference Range Interpretation Comments POCT U SP GRAV (test code = 3255) . 1.005-1.025 POCT PH U (test code = 3254) . 5-8 POCT U LEUK EST (test code = 3263) . Negative - Negative POCT U NIT (test code = 3262) . Negative - Negative POCT U PROT (test code = 3259) trace Negative - Negative POCT U GLU (test code = 3256) normal Negative - Negative POCT U KETONE (test code = 3258) . Negative - Negative POCT U UROBILI (test code = 3260) . 0.2-1 POCT U BILI (test code = 3261) . Negative - Negative POCT U BLD (test code = 3257) . Negative - Negative POCT U COLOR (test code = 3266) . POCT U APPEAR (test code = 3267) . [facility]"
--- NOTE | 2023-03-22 05:51 | EDPHYS ---
Physician Documentation [facility] Name: Gemma Schofield Age: 22 yrs Sex: Female : 2000 Arrival Date: 03/22/2023 Time: 05:04 Bed 10 Private MD: ED Physician Juliano Vazquez HPI: 03/22 05:46 This 22 yrs old Female presents to ER via Unassigned with complaints of bs3 Bleeding from stitch. 05:46 22-year-old female history of 10 days postop after a abdominoplasty presents with bs3 bleeding from her sutures she has follow-up on Friday she denies any lightheadedness or dizziness this is never happened before she has a drain in place but the bleeding is happening from a different site she notes that when she applies pressure the bleeding stopped. Historical: - Allergies: 05:53 No Known Allergies; pf1 - Home Meds: 05:53 None [Active]; pf1 - PMHx: 05:53 None; pf1 - PSHx: 05:53 tummy tuck; pf1 - Immunization history:: Adult Immunizations up to date, Client reports having NOT received the Covid vaccine. Last tetanus immunization: < 5 years ago Flu vaccine is not up to date. - Social history:: Smoking status: Patient denies any tobacco usage or history of. Patient uses alcohol, but reports only rare drinking. Patient/guardian denies using street drugs. ROS: 05:46 Constitutional: Negative for fever, chills bs3 05:46 All other systems are negative. Exam: 05:46 Constitutional: This is a well developed, well nourished patient who is awake, alert, bs3 and in no acute distress. Head/Face: Normocephalic, atraumatic. Eyes: Pupils equal round and reactive to light, extra-ocular motions intact. Lids and lashes normal. ENT: mmm, no posterior phyarngeal erythema Neck: Trachea midline, no thyromegaly, no neck stiffness Chest/axilla: Normal chest wall appearance and motion. Nontender with no deformity. No lesions are appreciated. Cardiovascular: Regular rate and rhythm with a normal S1 and S2. symmetric pulses in upper extremities Respiratory: Lungs have equal breath sounds bilaterally, clear to auscultation, no respiratory distress Abdomen/GI: She has a abdominal wound in the Pfannenstiel region there is a small amount of oozing from one of the stitches with some wound dehiscence Skin: Warm, dry with normal turgor. Normal color with no rashes, no lesions, and no evidence of cellulitis. MS/ Extremity: Pulses equal, no cyanosis. Neurovascular intact. Full, normal range of motion. Neuro: Awake and alert, GCS 15, oriented to person, place, time, and situation. Cranial nerves II-XII grossly intact. Motor strength 5/5 in all extremities. Sensory grossly intact. Psych: Awake, alert, with orientation to person, place and time. Behavior, mood, and affect are within normal limits. Vital Signs: 05:17 BP 119 / 85; Pulse 85; Resp 18; Temp 98.9; Pulse Ox 100% on R/A; Weight 99.79 kg; pf1 Height 5 ft. 4 in. ; Pain 0/10; 05:17 Body Mass Index 37.76 (99.79 kg, 162.56 cm) pf1 05:17 Pain Scale: Adult pf1 MDM: 05:14 Patient medically screened. bs3 05:46 Data reviewed: vital signs, nurses notes. ED course: Patient with small amount of bs3 bleeding from wound dehiscence that is likely a mix of blood and serous fluid based on the color we discussed risks and benefits of a suture versus a pressure dressing and follow-up on Friday we decided that she should follow-up on Friday and was given very strict return precautions. Administered Medications: No medications were administered Disposition Summary: 03/22/23 05:51 Discharge Ordered Location: Home bs3 Problem: new bs3 Symptoms: have improved bs3 Condition: Stable bs3 Diagnosis - Disruption of external operation (surgical) wound, not elsewhere classified bs3 Followup: bs3 - With: Private Physician - When: 48 Hours - Reason: Re-evaluation by your physician Discharge Instructions: - Discharge Summary Sheet bs3 - Wound Dehiscence, [id number] bs3 Forms: - Medication Reconciliation Form bs3 - Thank You Letter bs3 - Antibiotic Education bs3 - Prescription Opioid Use bs3 Signatures: Juliano Vazquez MD MD bs3 Rachele Cedeno RN RN pf1
--- NOTE | 2023-03-22 05:57 | ER ---
Nurse's Notes [facility] Name: Gemma Schofield Age: 22 yrs Sex: Female : 2000 Arrival Date: 03/22/2023 Time: 05:04 Bed 10 Private MD: Diagnosis: Disruption of external operation (surgical) wound, not elsewhere classified Presentation: 03/22 05:17 Chief complaint: Patient states: small of amount of bleeding from suture site,onset pf1 last night. Patient stated had a tummy tuck on 02/24/23. Coronavirus screen: Vaccine status: Patient reports being unvaccinated. Client denies travel out of the [place] in the last 14 days. At this time, the client does not indicate any symptoms associated with coronavirus-19. Ebola Screen: Patient negative for fever greater than or equal to 101.5 degrees Fahrenheit, and additional compatible Ebola Virus Disease symptoms. Initial Sepsis Screen: Does the patient meet any 2 criteria? HR > 90 bpm. No. Patient's initial sepsis screen is negative. Does the patient have a suspected source of infection? No. Patient's initial sepsis screen is negative. Risk Assessment: Do you want to hurt yourself or someone else? Patient reports no desire to harm self or others. 05:17 Method Of Arrival: Ambulatory pf1 05:17 Acuity: MORALES 4 pf1 Historical: - Allergies: 05:53 No Known Allergies; pf1 - Home Meds: 05:53 None [Active]; pf1 - PMHx: 05:53 None; pf1 - PSHx: 05:53 tummy tuck; pf1 - Immunization history:: Adult Immunizations up to date, Client reports having NOT received the Covid vaccine. Last tetanus immunization: < 5 years ago Flu vaccine is not up to date. - Social history:: Smoking status: Patient denies any tobacco usage or history of. Patient uses alcohol, but reports only rare drinking. Patient/guardian denies using street drugs. Screenin:17 [facility] ED Fall Risk Assessment (Adult) History of falling in the last 3 months, pf1 including since admission No falls in past 3 months (0 pts) Confusion or Disorientation No (0 pts) Intoxicated or Sedated No (0 pts) Impaired Gait No (0 pts) Mobility Assist Device Used No (0 pt) Altered Elimination No (0 pt) Score/Fall Risk Level 0 - 2 = Low Risk Oriented to surroundings, Maintained a safe environment, Educated pt \T\ family on fall prevention, incl call for assistance when getting out of bed, Assessed \T\ reinforced patient's understanding of fall precautions, Provided non-skid footwear, Hourly rounding (assess needs \T\ fall precautionary measures) done, Used ambulatory aids as needed (educated on \T\ assisted with), Used gait belt as appropriate. Abuse screen: Denies threats or abuse. Nutritional screening: No deficits noted. Tuberculosis screening: No symptoms or risk factors identified. Assessment: 05:17 General: Appears in no apparent distress. comfortable, well groomed, well developed, pf1 Behavior is calm, cooperative, appropriate for age, quiet. 05:17 Pain: Denies pain. Neuro: No deficits noted. Level of Consciousness is awake, alert, pf1 obeys commands, Oriented to person, place, time, situation. Cardiovascular: No deficits noted. Cardiovascular: Capillary refill < 3 seconds Patient's skin is warm and dry. Respiratory: No deficits noted. Respiratory: Airway is patent Trachea midline Respiratory effort is even, unlabored, Respiratory pattern is regular, symmetrical. GI: No deficits noted. No signs and/or symptoms were reported involving the gastrointestinal system. : No deficits noted. No signs and/or symptoms were reported regarding the genitourinary system. EENT: No deficits noted. No signs and/or symptoms were reported regarding the EENT system. Derm: Reports small amount of bleeding from surgical suture site to abdominal region from tummy tuck,onset 10 days ago. Vital Signs: 05:17 BP 119 / 85; Pulse 85; Resp 18; Temp 98.9; Pulse Ox 100% on R/A; Weight 99.79 kg; pf1 Height 5 ft. 4 in. ; Pain 0/10; 05:17 Body Mass Index 37.76 (99.79 kg, 162.56 cm) pf1 05:17 Pain Scale: Adult pf1 ED Course: 05:10 Patient arrived in ED. es 05:14 Juliano Vazquez MD is Attending Physician. bs3 05:17 Patient has correct armband on for positive identification. Bed in low position. Call pf1 light in reach. 05:17 Arm band placed on right wrist. pf1 05:17 No provider procedures requiring assistance completed. pf1 05:53 Triage completed. pf1 05:57 Patient did not have IV access during this emergency room visit. pf1 Administered Medications: No medications were administered Medication: 05:50 VIS not applicable for this client. pf1 Outcome: 05:51 Discharge ordered by . bs3 05:57 Discharged to home ambulatory. pf1 05:57 Condition: stable 05:57 Discharge instructions given to patient, Instructed on discharge instructions, follow up and referral plans. Demonstrated understanding of instructions, follow-up care, wound care. 05:57 Patient left the ED. pf1 Signatures: Annabelle Taylor Brandon, MD MD bs3 Rachele Cedeno, RN RN pf1
[2023-03-22 06:02] VITALS: BP 119/85; TEMP 98.9; O2SAT 100
== END 2023-03-22 05:57 | disposition home or self-care (01) ==
LOC: ER 05:04
DX: T81.31XA Disruption of external operation (surgical) wound, not elsewhere classified, initial encounter (principal); Z98.890 Other specified postprocedural states
CPT/HCPCS: 99282